=== PATIENT | female | born 1995 | race Caucasian/White ===

== ENCOUNTER 2019-03-20 13:43 | Emergency (ER) | payer OTHER ==
[~2019-03-20] VITALS: Ht 152.4 cm; Wt 54.4 kg
[2019-03-20 13:44] VITALS: BP 141/76
--- NOTE | 2019-03-20 13:52 | NUR ---
WAIT AT [facility]. PT [id number]. LAC WOUND BACK OF HEAD: BLEEDING IN CONTROL.
--- NOTE | 2019-03-20 13:55 | NUR ---
PT PRESENTS TO ED WITH LACERATION TO BACK OF HEAD S/P FALL AT SCHOOL. NO LOC OCCURED. PT IS HERE WITH HER DAD. NO ACTIVE BLEEDING AT THIS TIME. PT ALERT AND ORIENTED, ANSWERING QUESTIONS APPROPRIATELY. FATHER AT BEDSIDE. LAC CLEANED WITH SALINE.
--- NOTE | 2019-03-20 14:43 | NUR ---
ARNOLD ARMSTRONG AT BEDSIDE, EVALUATING PT.
[2019-03-20] MEDS ORDERED: ACETAMINOPHEN 650 MG/20.3 ML UDC PO ONE (15:00)
--- NOTE | 2019-03-20 15:00 | NUR ---
ARNOLD ARMSTRONG STAPLED PT LACERATION ON BACK O HEAD, PT TOLERATED WELL.
== END 2019-03-20 15:13 | disposition home or self-care (01) ==
LOC: MED 13:43
DX: S01.01XA Laceration without foreign body of scalp, initial encounter (principal); W01.0XXA Fall on same level from slipping, tripping and stumbling without subsequent striking against object, initial encounter; Y93.89 Activity, other specified; Y92.098 Other place in other non-institutional residence as the place of occurrence of the external cause; Y99.8 Other external cause status
CPT/HCPCS: 12001; 81025; 99283

== ENCOUNTER 2019-03-22 08:43 | Emergency (ER) | payer OTHER ==
[~2019-03-22] VITALS: Ht 152.4 cm; Wt 56.3 kg
[2019-03-22 08:50] VITALS: BP 120/64
--- NOTE | 2019-03-22 08:55 | NUR ---
PT AMBULATED TO LOBBY AT THIS TIME, VSS.
--- NOTE | 2019-03-22 09:10 | NUR ---
PT TO ER BED 11
--- NOTE | 2019-03-22 09:12 | NUR ---
CAME FOR RECHECK ON STAPLE ON HER OCCIPITAL AREA SECONDARY TO HEAD WOUND/LAC X2 DAYS. PT WAS SEEN HERE 2 DAYS AGO AND RECIEVED 3 ANGELES. CLOSED WOUND ON BACK OF HEAD WITH NO DRAINAGE, NO SWELLING, NO ERYTHEMA. PAIN AT 01/12, PT TX WITH TYLENOL WITH RELIEF. MEDHX:DENIES RX:TYLENOL
[2019-03-22 09:45] VITALS: BP 123/80
--- NOTE | 2019-03-22 09:45 | NUR ---
Patient discharged with v/s stable. Written and verbal after care instructions given and explained. Patient verbalized understanding. Ambulatory with steady gait. All questions addressed prior to discharge. Advised to follow up with PMD.
== END 2019-03-22 09:45 | disposition home or self-care (01) ==
LOC: MED 08:43
DX: S01.01XD Laceration without foreign body of scalp, subsequent encounter (principal); W22.09XD Striking against other stationary object, subsequent encounter; Z91.040 Latex allergy status; Z88.8 Allergy status to other drugs, medicaments and biological substances
CPT/HCPCS: 99283